=== PATIENT | male | born 1950 | race African-American/Black ===

== ENCOUNTER 2019-11-26 09:20 | Outpatient (CLI) | payer OTHER | END 2019-11-26 09:27 | disposition home or self-care (01) | LOC: LAB 09:20 | DX: E11.9 Type 2 diabetes mellitus without complications (principal); I10 Essential (primary) hypertension; E03.8 Other specified hypothyroidism; E78.2 Mixed hyperlipidemia; Z12.11 Encounter for screening for malignant neoplasm of colon; N40.0 Benign prostatic hyperplasia without lower urinary tract symptoms ==

== ENCOUNTER 2019-12-17 12:55 | Outpatient (CLI) | payer OTHER | END 2019-12-17 13:01 | disposition home or self-care (01) | LOC: RAD 12:55 | DX: M19.90 Unspecified osteoarthritis, unspecified site (principal); M46.47 Discitis, unspecified, lumbosacral region ==

== ENCOUNTER → 2020-05-18 | Outpatient (CLI) | payer OTHER | END | disposition home or self-care (01) | LOC: RAD 10:18 | PROVIDERS: ATTEND Internal Medicine Cardiovascular Disease | DX: M12.89 Other specific arthropathies, not elsewhere classified, multiple sites (principal) ==